=== PATIENT | female | born 1985 | race Caucasian/White ===

== ENCOUNTER 2020-08-05 10:42 | Emergency (ER) | payer SELFPAY ==
--- NOTE | ~2020-08-05 | XR_ITS ---
XR foot LT min 3V DATE: 08/05/2020 11:34 INDICATION: Fall. Lateral left foot pain TECHNIQUE: 4 views COMPARISON: None FINDINGS: Plantar calcaneal enthesopathy. There is a nondisplaced transverse acute fracture of the base of the fifth metatarsal No fracture or dislocation. IMPRESSION: Nondisplaced transverse fracture of the base of fifth metatarsal bone Reviewed, dictated and finalized at location A. CODE INSPECTOR IMPRESSION: Nondisplaced transverse fracture of the base of fifth metatarsal marbella ne
[2020-08-05 10:46] VITALS: BP 135/81; PULSE 88; RESP 18; TEMP 36.4; O2SAT 99
--- NOTE | 2020-08-05 11:17 | ED_ITS ---
HPI - Extremity Injury (Lower) General Chief Complaint: Extremity Injury, Lower Stated Complaint: left foot injury Time Seen by Provider: 08/05/20 11:12 History of Present Illness HPI Narrative: Stepped down wrong on her left foot last night resulting in a fall. She had mild pain at the time. Worse this morning. Associated with bruising to the lateral part of the foot. Able to bear weight. No additional pain or injury. Related Data Allergies Allergy/AdvReac Type Severity Reaction Status Date / Time No Known Allergies Allergy Verified 08/05/20 10:49 Review of Systems Review of Systems: All systems reviewed & are unremarkable except as noted in HPI and below PMFSH Past Medical History Medical History (Updated 08/05/20 @ 12:05 by Jin Bautista MD) Healthy adult Social History Social History (Updated 08/05/20 @ 11:24 by Jin Bautista MD) Smoking status: Never smoker Gender identity (if verbalized by the patient): Female Exam Const: General: healthy appearing, no acute distress and alert Orientation/consciousness: patient oriented x3 HENMT: Head: normal to inspection Resp: Effort & Inspection: normal respiratory effort Skin: General skin exam: normal color Rashes: no rashes Wounds: no wounds Neuro: General: patient oriented x3 and moves all extremities Speech: normal speech Extrem: Other: Tnederness and bruising over 4-5 metatarsals Course Vital Signs Vital signs: Vital Signs Temperature 36.4 C 08/05/20 10:46 Pulse Rate 88 08/05/20 10:46 Respiratory Rate 18 08/05/20 10:46 Blood Pressure 135/81 08/05/20 10:46 Pulse Oximetry 99 08/05/20 10:46 Temperature 36.4 C 08/05/20 10:46 Pulse Rate 88 08/05/20 10:46 Respiratory Rate 18 08/05/20 10:46 Blood Pressure 135/81 08/05/20 10:46 Pulse Oximetry 99 08/05/20 10:46 MDM - Extremity Injury (Lower) Medical Records Attestation: I reviewed the patient's medical records. Lab Data Attestation: I reviewed the patient's lab results. Imaging Data Radiologist's impression: ITS Impressions Foot X-Ray 08/05/20 11:50 IMPRESSION: Nondisplaced transverse fracture of the base of fifth metatarsal bone Discharge Plan Discharge Clinical Impression: Metatarsal fracture Qualifiers: Encounter type: initial encounter Metatarsal bone: fifth Fracture type: closed Fracture alignment: nondisplaced Laterality: left Qualified Code(s): S92.355A - Nondisplaced fracture of fifth metatarsal bone, left foot, initial encounter for closed fracture Patient Disposition: Home, Self-Care Condition: Stable Instructions: Foot Fracture in Adults (ED) Prescriptions: New hydrocodone-acetaminophen [[facility] [place]] 5-325 mg tablet 1 tablet PO Q6H PRN (Reason: pain) Qty: 10 RF: 0 Follow-up/Referrals: PHYSICIAN,[employer] TECHNICIAN [Primary Care Provider] - Mil Mc MD [Physician] -
== END 2020-08-05 12:16 | disposition home or self-care (01) ==
PROVIDERS: Emergency Provider Emergency Medicine
DX: S92.355A Nondisplaced fracture of fifth metatarsal bone, left foot, initial encounter for closed fracture (principal); W01.0XXA Fall on same level from slipping, tripping and stumbling without subsequent striking against object, initial encounter
CPT/HCPCS: 73630; 99284

== ENCOUNTER 2023-03-17 09:48 | Emergency (ER) | payer OTHER, SELFPAY ==
--- NOTE | 2023-03-17 09:50 | ED.SKABFB ---
HPI - Skin/Abscess/Foreign Bdy General Chief complaint: Skin/Abscess/Foreign Body Stated complaint: RASH Time Seen by Provider: 03/17/23 09:50 Source: patient Mode of arrival: ambulatory Limitations: no limitations History of Present Illness HPI narrative: Betzy is a 37-year-old female patient presenting to the clinic today with complaints of a rash x1 week. She reports she thinks she has poison suzy. States that the rash continues to spread and she has not slept for the past 3 nights due to the itching. She denies any fever or chills. Rash is nonpainful. Related Data Allergies Allergy/AdvReac Type Severity Reaction Status Date / Time No Known Allergies Allergy Verified 03/17/23 09:59 Review of Systems Review of Systems: Pertinent positives per HPI. Patient denies any fever, chills, headache, visual changes, dizziness, cough, runny nose, sore throat, shortness of breath, chest pain, palpitations, nausea, vomiting, diarrhea, constipation, abdominal pain, or any urinary issues. PMFSH Past Medical History Medical History Healthy adult Social History Social History Smoking status: Never smoker Gender identity (if verbalized by the patient): Female Comments At the time of my signature, I reviewed and agree with the nursing past medical, surgical, social, and family history. There is no relevant family history pertinent to the patient complaint. Exam Narrative: General: Well-developed, well nourished, in no apparent distress Head: Normocephalic, atraumatic. Cardio: Regular rate and rhythm, s1 and s2 normal, no murmur appreciated. Resp: Clear to auscultation bilaterally, no rhonchi, rales, wheezing or rubs. Integumentary: [place], warm, and dry, intact without lesion, red raised blistery like rash to bilateral legs and bilateral arms Course Course Emergency Course: Portions of this record may have been created with voice recognition software. Level of Care: Express Care Visit Vital Signs Vital signs: Vital signs reviewed MDM - Skin/Abscess/Foreign Bdy MDM Narrative Medical decision making narrative: At the time of the patient is resting comfortably on the exam table. I suspect patient has contact dermatitis due to plan. Prescription for prednisone and triamcinolone cream was sent to the pharmacy. Supportive measures were discussed with the patient she voiced understanding discharge instructions agrees to treatment plan. Differential Diagnosis Differential diagnosis: Likely abscess of skin or subcutaneous tissue, viral exanthem, urticaria, herpes zoster, cellulitis, eczema, insect bites, impetigo and contact dermatitis Discharge Plan Discharge Clinical Impression: Allergic contact dermatitis due to plant Patient Disposition: Home, Self-Care Condition: Stable Instructions: Antibiotic Form, Poison Suzy (ED) Additional Instructions: Apply triamcinolone cream as directed Take prednisone as directed Avoid hot showers May apply calamine lotion to rash Avoid scratching and this can cause itching to intensify and can cause infection May take benadryl 25-50mg every 6 hours as needed for itching. Follow up with your PCP in 3-5 days if symptoms persist or sooner if they worsen Go to the Emergency Room if symptoms worsen- fever, rash spreading with treatment, shortness of breath, tongue swelling, drooling, or chest pain Prescriptions: New prednisone 20 mg tablet 40 mg PO DAILY 5 Days Qty: 10 0RF triamcinolone acetonide 0.1 % cream 1 applic topical BID 7 Days Qty: 30 0RF Follow-up/Referrals: UNKNOWN,DOCTOR [Non-Staff] - Time of Disposition: 10:00 Quality NIHSS Nursing Documentation ED NIHSS nursing documentation: reviewed/agree
[2023-03-17 09:59] VITALS: BP 169/95; PULSE 97; RESP 16; TEMP 36.6; O2SAT 100
== END 2023-03-17 10:05 | disposition home or self-care (01) ==
LOC: EXPGOSH 09:52
PROVIDERS: Emergency Provider Nurse Practitioner Family; PCP Nurse Practitioner Family
DX: L23.7 Allergic contact dermatitis due to plants, except food (principal)
CPT/HCPCS: 99213; G0463